=== PATIENT | male | born 1985 | race Caucasian/White ===

== ENCOUNTER 2019-07-21 09:01 | Emergency (ER) | payer SELFPAY ==
[2019-07-21] MEDS ORDERED: Famotidine 20 MG/2 ML SDV IVPUSH ONE (09:14)
[2019-07-21] MEDS ORDERED: Hydrocortisone Sodium Succinate 100 MG/2 ML SDV IVPUSH ONE (09:14)
[2019-07-21] MEDS ORDERED: diphenhydrAMINE 50 MG/ML SDV IVPUSH ONE (09:14)
[2019-07-21] MEDS ORDERED: methylPREDNISolone Sodium Succinate 125 MG/2 ML SDV IVPUSH ONE (09:19)
--- NOTE | 2019-07-21 09:20 | EDM.PDOC ---
ED HPI GENERAL MEDICAL PROBLEM - General Chief Complaint: Allergic Reaction Stated Complaint: ALERGIC REACTION Time Seen by Provider: 07/21/19 09:20 Source of Information: Reports: Patient, Old Records, RN, RN Notes Reviewed History Limitations: Reports: No Limitations - History of Present Illness INITIAL COMMENTS - FREE TEXT/NARRATIVE: Pt presents to ER from work with c/o having shortness of breath and has hives on torso from an allergic reaction to lentils. Pt was exposed to lentils while at work [employer] in [place], was exposed about 1 hour ago. Onset: Today, Sudden Duration: Constant Location: Reports: Generalized Quality: Reports: Other (denies pain) Severity: Moderate Improves with: Reports: None Worsens with: Reports: None Associated Symptoms: Reports: No Other Symptoms - Related Data Allergies Allergy/AdvReac Type Severity Reaction Status Date / Time Flouride Allergy Dizziness Uncoded 12/28/15 01:04 Home Meds: Home Meds Diclofenac Sodium [Voltaren] 75 mg PO BID 12/28/15 [History] Methocarbamol 500 mg PO TID 12/28/15 [History] Omeprazole Magnesium [Prilosec Otc] 20 mg PO DAILY 12/28/15 [History] Past Medical History HEENT History: Reports: None Cardiovascular History: Reports: None Respiratory History: Reports: Bronchitis, Recurrent Gastrointestinal History: Reports: None Genitourinary History: Reports: None Musculoskeletal History: Reports: Back Pain, Chronic, Other (See Below) Other Musculoskeletal History: left ankle Neurological History: Reports: None Psychiatric History: Reports: None Endocrine/Metabolic History: Reports: None Hematologic History: Reports: None Immunologic History: Reports: None Oncologic (Cancer) History: Reports: None Dermatologic History: Reports: None - Infectious Disease History Infectious Disease History: Reports: Chicken Pox - Past Surgical History HEENT Surgical History: Reports: None Cardiovascular Surgical History: Reports: None Social & Family History - Family History Cardiac: Reports: [place], Stent Other Cardiac Family History: Father & Uncle Respiratory: Reports: Asthma Other Respiratory Family Hisory: Son Neurological: Reports: CVA Other Neurological Family History: Uncle Endocrine/Metabolic: Reports: Diabetes, Type I Other Endocrine/Metabolic Family History: Uncle - Living Situation & Occupation Living situation: Reports: with Family Occupation: Employed ED ROS ALLERGIC REACTION - Review of Systems Review Of Systems: Comprehensive ROS is negative, except as noted in HPI. ED EXAM GENERAL NO PERIP PULSE - Physical Exam Exam: See Below Exam Limited By: No Limitations General Appearance: Alert, WD/WN, No Apparent Distress, Obese Eye Exam: Bilateral Eye: EOMI, Normal Inspection, PERRL Ears: Normal External Exam Nose: Normal Inspection, Normal Mucosa, No Blood Throat/Mouth: Normal Inspection, Normal Lips, Normal Oropharynx, Normal Voice, No Airway Compromise Head: Atraumatic, Normocephalic Neck: Normal Inspection, Supple, Non-Tender, Full Range of Motion Respiratory/Chest: No Respiratory Distress, Lungs Clear, Normal Breath Sounds, No Accessory Muscle Use, Chest Non-Tender Cardiovascular: Regular Rate, Rhythm, No Edema GI/Abdominal: Normal Bowel Sounds, Soft, Non-Tender, No Organomegaly, No Distention, No Abnormal Bruit, No Mass Back Exam: Normal Inspection Extremities: Normal Inspection, Normal Range of Motion, Non-Tender, Normal Capillary Refill, No Pedal Edema Neurological: Alert, Oriented, Normal Cognition, Normal Gait, No Motor/Sensory Deficits Psychiatric: Normal Affect, Normal Mood Skin Exam: Warm, Dry, Rash (mild generalized patches of urticaria. Chronic appearing torso tinea versicolor) Course - Vital Signs Last Recorded V/S: Last Vital Signs Temp 98.4 F 07/21/19 09:16 Pulse 90 07/21/19 09:16 Resp 18 07/21/19 09:16 BP 169/82 H 07/21/19 09:16 Pulse Ox 97 07/21/19 09:16 - Orders/Labs/Meds Meds: Medications Discontinued Medications Generic Name Dose Route Start Last Admin Trade Name Telly PRN Reason Stop Dose Admin Diphenhydramine HCl 50 mg 07/21/19 09:14 07/21/19 09:20 Benadryl IVPUSH 07/21/19 09:15 50 mg ONETIME ONE Administration Famotidine 20 mg 07/21/19 09:14 07/21/19 09:19 Pepcid IVPUSH 07/21/19 09:15 20 mg ONETIME ONE Administration Methylprednisolone Sodium Succinate 125 mg 07/21/19 09:19 07/21/19 09:26 Solu-Medrol IVPUSH 07/21/19 09:20 125 mg ONETIME ONE Administration Departure - Departure Time of Disposition: 10:26 Disposition: Home, Self-Care 01 Condition: Good Clinical Impression: Allergic reaction to flour dust, Tinea versicolor - Discharge Information *PRESCRIPTION DRUG MONITORING PROGRAM REVIEWED*: No *COPY OF PRESCRIPTION DRUG MONITORING REPORT IN PATIENT EDILBERTO: No Instructions: Allergies, Adult, [id number], Hives, [id number], Tinea Versicolor, [id number] Forms: ED Department Discharge Additional Instructions: Rx: Zyrtec 10mg Rx: Prednisone 20mg Avoid Lentils Follow up in clinic if not improved in 24 hours. Return to ER if worse at any time.
[2019-07-21 09:25] VITALS: BP 169/82; PULSE 90
== END 2019-07-21 10:39 | disposition home or self-care (01) ==
LOC: DL.ED 09:01
DX: T78.1XXA Other adverse food reactions, not elsewhere classified, initial encounter (principal); R06.02 Shortness of breath; B36.0 Pityriasis versicolor; Z88.8 Allergy status to other drugs, medicaments and biological substances
CPT/HCPCS: 96374; 96375; 99284; J1200; J2930; J3490; 99283

== ENCOUNTER 2021-01-04 13:57 | Emergency (ER) | payer MEDICAID ==
[2021-01-04] MEDS ORDERED: Aspirin 81 MG Tab.Chew PO ONE (14:05)
[2021-01-04] MEDS ORDERED: Morphine 2 MG/ML SYRINGE IVPUSH ONE (14:08)
[2021-01-04 14:11] VITALS: BP 136/88; PULSE 50
[2021-01-04] MEDS ORDERED: Tenecteplase 50 MG Kit IV ONE (14:17)
[2021-01-04] MEDS ORDERED: Clopidogrel 75 MG Tab PO ONE (14:21)
--- NOTE | 2021-01-04 14:30 | EDM.PDOC ---
ED HPI GENERAL MEDICAL PROBLEM - General Chief Complaint: Chest Pain Stated Complaint: EXTREME CHEST PAIN Time Seen by Provider: 01/04/21 14:03 Source of Information: Reports: Patient History Limitations: Reports: No Limitations - History of Present Illness INITIAL COMMENTS - FREE TEXT/NARRATIVE: This 35 yo male patient reports to the ED with sharp, stabbing chest pain that started 1 hour prior to his arrival in the ED. The patient did take a nitro at home prior to arrival that dropped his pressure. The patient has a history of previous cardiac stents. Onset: Today Onset Date: 01/04/21 Onset Time: 13:00 Duration: Constant Location: Reports: Chest Quality: Reports: Sharp, Stabbing Severity: Severe Improves with: Reports: None Worsens with: Reports: None Context: Reports: Other Associated Symptoms: Reports: Chest Pain Left Chest Pain Score (Numeric/FACES): 8 - Related Data Allergies Allergy/AdvReac Type Severity Reaction Status Date / Time Flouride Allergy Dizziness Uncoded 01/04/21 14:15 Home Meds: Home Meds Diclofenac Sodium [Voltaren] 75 mg PO BID 12/28/15 [History] Omeprazole Magnesium [Prilosec Otc] 20 mg PO DAILY 12/28/15 [History] methocarbamoL [Methocarbamol] 500 mg PO TID 12/28/15 [History] Past Medical History HEENT History: Reports: None Cardiovascular History: Reports: [place], Stents Respiratory History: Reports: Bronchitis, Recurrent Gastrointestinal History: Reports: None Genitourinary History: Reports: None Musculoskeletal History: Reports: Back Pain, Chronic, Other (See Below) Other Musculoskeletal History: left ankle Neurological History: Reports: None Psychiatric History: Reports: None Endocrine/Metabolic History: Reports: None Hematologic History: Reports: None Immunologic History: Reports: None Oncologic (Cancer) History: Reports: None Dermatologic History: Reports: None - Infectious Disease History Infectious Disease History: Reports: Chicken Pox - Past Surgical History Head Surgeries/Procedures: Reports: None HEENT Surgical History: Reports: None Cardiovascular Surgical History: Reports: None Social & Family History - Family History Family Medical History: No Pertinent Family History Cardiac: Reports: [place], Stent Other Cardiac Family History: Father & Uncle Respiratory: Reports: Asthma Other Respiratory Family Hisory: Son Neurological: Reports: CVA Other Neurological Family History: Uncle Endocrine/Metabolic: Reports: Diabetes, Type I Other Endocrine/Metabolic Family History: Uncle - Tobacco Use Tobacco Use Status *Q: Heavy Tobacco User Years of Tobacco use: 14 Packs/Tins Daily: 1 - Caffeine Use Caffeine Use: Reports: Soda - Recreational Drug Use Recreational Drug Use: No - Living Situation & Occupation Living situation: Reports: with Family Occupation: Employed ED ROS GENERAL - Review of Systems Review Of Systems: Comprehensive ROS is negative, except as noted in HPI. ED EXAM, GENERAL - Physical Exam Exam: See Below Exam Limited By: No Limitations General Appearance: Alert, WD/WN, Anxious Eye Exam: Bilateral Eye: EOMI, Normal Inspection, PERRL Ears: Normal External Exam, Normal Canal, Hearing Grossly Normal, Normal TMs Nose: Normal Inspection, Normal Mucosa, No Blood Throat/Mouth: Normal Inspection, Normal Lips, Normal Teeth, Normal Gums, Normal Oropharynx, Normal Voice, No Airway Compromise Head: Atraumatic, Normocephalic Neck: Normal Inspection, Supple, Non-Tender, Full Range of Motion Respiratory/Chest: No Respiratory Distress, Lungs Clear, Normal Breath Sounds, No Accessory Muscle Use, Chest Non-Tender Cardiovascular: No Edema, No Gallop, No JVD, No Murmur, No Rub, Bradycardia GI/Abdominal: Normal Bowel Sounds, Soft, Non-Tender, No Organomegaly, No Distention, No Abnormal Bruit, No Mass (Male) Exam: Deferred Rectal (Males) Exam: Deferred Back Exam: Normal Inspection, Full Range of Motion, NT Extremities: Normal Inspection, Normal Range of Motion, Non-Tender, Normal Capillary Refill, No Pedal Edema Neurological: Alert, Oriented, CN II-XII Intact, Normal Cognition, Normal Gait, Normal Reflexes, No Motor/Sensory Deficits Psychiatric: Normal Affect, Normal Mood Skin Exam: Warm, Dry, Intact, Normal Color, No Rash Lymphatic: No Adenopathy Course - Vital Signs Last Recorded V/S: Last Vital Signs Temp 36.2 C 01/04/21 14:08 Pulse 50 L 01/04/21 14:08 Resp 20 01/04/21 14:08 BP 136/88 01/04/21 14:08 Pulse Ox 98 01/04/21 14:08 - Orders/Labs/Meds Orders: Active Orders 24 hr Category Date Time Status EKG Documentation Completion [RC] STAT Care 01/04/21 14:03 Ordered Chest 1V Frontal [CR] Urgent Exams 01/04/21 14:05 Ordered COMPREHENSIVE METABOLIC PN,CMP [CHEM] Stat Lab 01/04/21 14:03 Ordered D-DIMER QUANTITATIVE [COAG] Stat Lab 01/04/21 14:03 Ordered DRUG SCREEN URINE BIORAD [URCHEM] Stat Lab 01/04/21 14:03 Ordered INR,PT,PROTHROMBIN TIME [COAG] Stat Lab 01/04/21 14:22 Ordered LACTATE SEPSIS W/ REFLEX [CHEM] Stat Lab 01/04/21 14:03 Ordered TROPONIN I [CHEM] Stat Lab 01/04/21 14:03 Ordered Labs: Laboratory Tests 01/04/21 Range/Units 14:03 WBC 17.1 H (5.0-10.0) 10^3/uL RBC 6.12 (4.6-6.2) 10^6/uL Hgb 18.8 H (14.0-18.0) g/dL Hct 55.0 H (40.0-54.0) % MCV 89.9 (80-100) fL MCH 30.7 (27.0-34.0) pg MCHC 34.2 (33.0-35.0) g/dL Plt Count 323 (150-450) 10^3/uL Neut % (Auto) 74.0 (42.2-75.2) % Lymph % (Auto) 17.3 L (20.5-50.1) % Churchill % (Auto) 6.0 (2-8) % Eos % (Auto) 1.9 (1.0-3.0) % Baso % (Auto) 0.8 (0.0-1.0) % Meds: Medications Discontinued Medications Generic Name Dose Route Start Last Admin Trade Name Bradleyq PRN Reason Stop Dose Admin Aspirin 324 mg 01/04/21 14:05 01/04/21 14:15 Aspirin 81 Mg Tab.Chew PO 01/04/21 14:06 324 mg ONETIME ONE Administration Clopidogrel Bisulfate 75 mg 01/04/21 14:21 Clopidogrel 75 Mg Tab PO 01/04/21 14:22 ONETIME ONE Morphine Sulfate 2 mg 01/04/21 14:08 01/04/21 14:15 Morphine 2 Mg/Ml Syringe IVPUSH 01/04/21 14:09 2 mg ONETIME ONE Administration Tenecteplase 50 mg 01/04/21 14:17 Tenecteplase 50 Mg Kit IV 01/04/21 14:18 ONETIME ONE Protocol Departure - Departure Time of Disposition: 14:31 Disposition: DC/Tfer to Acute Hospital 02 Reason for Transfer *Q: Other Condition: Critical Clinical Impression: STEMI (ST elevation myocardial infarction) Qualifiers: Involved coronary artery: unspecified coronary artery Qualified Code(s): I21.3 - ST elevation (STEMI) myocardial infarction of unspecified site Forms[facility] Goals: Discussed the patient's history, examination and EKG with Dr. Dawson (Cardiology with [facility] Dr. Dawson accepted the patient and advised to start thrombolytics prior to transport. The patient will have further evaluation and management at the ED in [facility]. The patient will be transported by [facility]. Sepsis Event Note (ED) - Evaluation Sepsis Screening Result: No Definite Risk - Focused Exam Vital Signs: Vital Signs Temp Pulse Resp BP Pulse Ox 01/04/21 14:08 36.2 C 50 L 20 136/88 98 - My Orders Last 24 Hours: My Active Orders 01/04/21 14:03 EKG Documentation Completion [RC] STAT COMPREHENSIVE METABOLIC PN,CMP [CHEM] Stat D-DIMER QUANTITATIVE [COAG] Stat DRUG SCREEN URINE BIORAD [URCHEM] Stat LACTATE SEPSIS W/ REFLEX [CHEM] Stat TROPONIN I [CHEM] Stat 01/04/21 14:05 Chest 1V Frontal [CR] Urgent 01/04/21 14:22 INR,PT,PROTHROMBIN TIME [COAG] Stat - Assessment/Plan Last 24 Hours: My Active Orders 01/04/21 14:03 EKG Documentation Completion [RC] STAT COMPREHENSIVE METABOLIC PN,CMP [CHEM] Stat D-DIMER QUANTITATIVE [COAG] Stat DRUG SCREEN URINE BIORAD [URCHEM] Stat LACTATE SEPSIS W/ REFLEX [CHEM] Stat TROPONIN I [CHEM] Stat 01/04/21 14:05 Chest 1V Frontal [CR] Urgent 01/04/21 14:22 INR,PT,PROTHROMBIN TIME [COAG] Stat
--- NOTE | 2021-01-04 14:32 | CR ---
EXAMINATION: Chest 1V Frontal SEX: Male AGE: 35 years CLINICAL HISTORY: 35-year-old male with chest pain. Interpretation: Negative exam. 1. Normal cardiac silhouette (size and configuration). Left-sided aortic arch. 2. No pulmonary vascular congestion, cephalization of flow, alveolar edema or dependent pleural fluid accumulation (no effusions). 3. No lung mass or hilar lymphadenopathy. 4. No alveolar infiltrate, atelectasis/collapse, or peripheral "groundglass" interstitial lung densities. 5. Normal midline tracheal bronchial airway. No pneumothorax or pneumomediastinum. No free subdiaphragmatic air.
[2021-01-04 14:34] LABS: ANION GAP 15.6 mEq/L (7-13); CHLORIDE,CL 105 mmol/L (98-107); SODIUM,NA 141 mmol/L (136-145)
== END 2021-01-04 14:35 ==
LOC: DL.ED 13:57
DX: I21.3 ST elevation (STEMI) myocardial infarction of unspecified site (principal); Z79.899 Other long term (current) drug therapy; Z72.0 Tobacco use; Z91.048 Other nonmedicinal substance allergy status
CPT/HCPCS: 36415; 71045; 80053; 83605; 84484; 85025; 85379; 85610; 93005; 96374; 96375; 99285; 99285-25; A9270-GY; J2270; J3101; U0002

== ENCOUNTER 2024-08-07 09:23 | Emergency (ER) | payer BC, MEDICAID ==
[2024-08-07 10:16] LABS: APPEARANCE,URINE CLEAR (CLEAR); BILIRUBIN,URINE NEGATIVE (NEGATIVE); COLOR,URINE YELLOW (YELLOW); GLUCOSE,URINE NEGATIVE (NEGATIVE); KETONES,URINE NEGATIVE (NEGATIVE); LEUKOCYTE ESTERASE,URINE SMALL (NEGATIVE); NITRITE,URINE NEGATIVE (NEGATIVE); OCCULT BLOOD,URINE TRACE-INTACT (NEGATIVE); PROTEIN,URINE NEGATIVE (NEGATIVE); UROBILINOGEN,URINE 0.2 mg/dL (0.2-1.0)
[2024-08-07 10:23] LABS: BASOPHILS PERCENT AUTO 1.3 % (0.0-1.0); EOSINOPHILS PERCENT AUTO 3.4 % (1.0-3.0); HEMATOCRIT 49.7 % (40.0-54.0); HEMOGLOBIN 16.9 g/dL (14.0-18.0); LYMPHOCYTES PERCENT AUTO 25.7 % (20.5-50.1); MONOCYTES PERCENT AUTO 9.5 % (2-8); NEUTROPHILS PERCENT AUTO 60.1 % (42.2-75.2); PLATELET COUNT,PLT 270 10^3/uL (150-450); RED BLOOD CELL COUNT 5.46 10^6/uL (4.6-6.2); WHITE BLOOD CELL COUNT,WBC 8.8 10^3/uL (5.0-10.0)
[2024-08-07 10:28] LABS: BACTERIA,URINE FEW /HPF (0-FEW/HPF); EPITHELIAL CELLS,URINE RARE /HPF (NOT SEEN); MUCUS,URINE FEW /LPF (NOT SEEN)
[2024-08-07] MEDS: Albuterol/Ipratropium 3.0-0.5 MG/3 ML Neb Soln NEB ONE (10:35)
[2024-08-07 10:45] LABS: A/G RATIO 0.9; ALBUMIN 3.6 g/dL (3.4-5.0); ANION GAP 12.4 mEq/L (7-13); BILIRUBIN TOTAL 0.2 mg/dL (0.2-1.0); BUN/CREATININE RATIO 7.4 (No establ ref range); CALCIUM 8.7 mg/dL (8.5-10.1); CREATININE 1.21 mg/dL (0.70-1.30); EST CRCL DRUG DOSING (CG) 95.3 mL/min; POTASSIUM,K 4.4 mmol/L (3.5-5.1); PROTEIN TOTAL,TP 7.6 g/dL (6.4-8.2)
[2024-08-07] MEDS: methylPREDNISolone Sodium Succinate 40 MG/1 ML SDV IM ONE (11:04)
[2024-08-07 11:35] VITALS: BP 126/90; PULSE 76
== END 2024-08-07 11:35 | disposition home or self-care (01) ==
LOC: DL.ED 09:23
DX: J45.909 Unspecified asthma, uncomplicated (principal); I25.2 Old myocardial infarction; F17.210 Nicotine dependence, cigarettes, uncomplicated; Z88.8 Allergy status to other drugs, medicaments and biological substances; Z79.899 Other long term (current) drug therapy
CPT/HCPCS: 36415; 71046; 80053; 81001; 83735; 84484; 85025; 85379; 87086; 87428; 96372; 99285; J2919; 93010; 99284; J7620-GY

== ENCOUNTER 2024-11-12 12:52 | Emergency (ER) | payer MEDICAID ==
[2024-11-12 13:40] VITALS: BP 184/106; PULSE 110
== END 2024-11-12 13:52 | disposition home or self-care (01) ==
LOC: DL.ED 12:52
DX: K64.9 Unspecified hemorrhoids (principal); I25.2 Old myocardial infarction; Z88.8 Allergy status to other drugs, medicaments and biological substances; Z79.899 Other long term (current) drug therapy
CPT/HCPCS: 99283